=== PATIENT | female | born 1960 | race Caucasian/White ===

== ENCOUNTER 2017-09-06 17:59 | Inpatient (IN) | payer BC ==
[~2017-09-06] VITALS: Ht 170.2 cm; Wt 69.7 kg
[2017-09-06] MEDS ORDERED: PROAIR HFA8.5 GM INH (18:08)
[2017-09-06] MEDS ORDERED: COMBIVENT RESPIM4 GM INH (18:08)
[2017-09-06 18:48] LABS: BASOPHILS 0.1 % (0-2); EOSINOPHILS 0.1 % (0-7); HEMATOCRIT 41.8 % (36.0-48.0); HEMOGLOBIN 14.4 g/dL (12-16); IMMATURE GRANULOCYTES 0.3 % (0-5); LYMPHOCYTES 6.9 % (15-50); MCH 31.7 pg (26.0-34.0); MCHC 34.4 g/dL (31.0-37.0); MCV 92.1 fL (80.0-100.0); MEAN PLATELET VOLUME 11.4 fL (7.4-10.4); NEUTROPHILS 86.6 % (40-80); PLATELET COUNT 160 10x3/uL (130-400); RBC 4.54 10x6/uL (4.00-5.40); WBC 10.9 10x3/uL (4.8-10.8)
[2017-09-06 19:11] LABS: ALBUMIN 2.9 g/dL (3.4-5.0); ALKALINE PHOSPHATASE 260 U/L (46-116); ALT (SGPT) 49 U/L (10-68); BILIRUBIN - TOTAL 1.05 mg/dL (0.2-1.3); CALC OSMOLALITY 271 mosm/kg (275-300); CALCIUM 9.1 mg/dL (8.5-10.1); CARBON DIOXIDE 22.4 mmol/L (21.0-32.0); CHLORIDE - SERUM 101 mmol/L (98-107); CREATININE - SERUM 1.1 mg/dL (0.6-1.3); GLUCOSE 132 mg/dL (74-106); POTASSIUM - SERUM 3.6 mmol/L (3.5-5.1); PROTEIN - SERUM 7.1 g/dL (6.4-8.2); SODIUM 136 mmol/L (136-145); UREA NITROGEN 8 mg/dL (7-18); eGFR NON AFRICAN AMERICAN 54 mL/min (90-120)
[2017-09-06 19:23] LABS: AMYLASE - SERUM 35 U/L (25-115); CKMB 1.5 U/L (0.0-3.6); CREATINE KINASE 230 UL (21-215); LIPASE 87 U/L (73-393); PRO BNP 490 pg/mL (0-125); THYROID STIMULATING HORMONE 5.11 uIU/mL (0.36-3.74)
[2017-09-06 19:24] LABS: APPEARANCE CLEAR (CLEAR); BILIRUBIN 1+ (NEGATIVE); COLOR DK YELLOW (YELLOW); GLUCOSE 50 mg/dL (NEGATIVE); KETONE SMALL mg/dL (NEGATIVE); NITRITE NEGATIVE (NEGATIVE); PROTEIN TRACE mg/dL (NEGATIVE); SPECIFIC GRAVITY 1.015 (1.005-1.020)
[2017-09-06 19:25] LABS: BACTERIA FEW /hpf (NONE SEEN); RED CELLS - URINE 0-5 /hpf (0-5); WHITE CELLS - URINE 0-5 /hpf (0-5)
[2017-09-06 19:26] LABS: MUCUS <1+ /lpf (NONE SEEN)
[2017-09-06 20:15] LABS: C-REACTIVE PROTEIN 36.1 mg/dL (0.0-0.9); TROPONIN-I < 0.017 ng/mL (0.000-0.060)
[2017-09-06 21:04] LABS: T4 THYROXIN - FREE 1.22 ng/dL (0.76-1.46)
[2017-09-07 00:29] VITALS: BP 93/42; BMI 21.5
[2017-09-07 01:41] VITALS: BP 93/42
[2017-09-07 04:00] VITALS: BP 101/59
[2017-09-07 06:31] LABS: BASOPHILS 0.2 % (0-2); EOSINOPHILS 0.7 % (0-7); LYMPHOCYTES 14.6 % (15-50); MCH 30.6 pg (26.0-34.0); MCHC 33.4 g/dL (31.0-37.0); MCV 91.6 fL (80.0-100.0); MEAN PLATELET VOLUME 11.3 fL (7.4-10.4); MONOCYTES 10.8 % (2-11); NEUTROPHILS 73.7 % (40-80); PLATELET COUNT 131 10x3/uL (130-400)
[2017-09-07 06:48] LABS: ANION GAP 11.2 mmol/L (8-16); BILIRUBIN - TOTAL 0.48 mg/dL (0.2-1.3); CALCIUM 7.4 mg/dL (8.5-10.1); CARBON DIOXIDE 23.2 mmol/L (21.0-32.0); CREATININE - SERUM 0.9 mg/dL (0.6-1.3); POTASSIUM - SERUM 3.4 mmol/L (3.5-5.1)
[2017-09-07 06:54] LABS: ALBUMIN 1.9 g/dL (3.4-5.0); PROTEIN - SERUM 4.3 g/dL (6.4-8.2)
[2017-09-07 07:14] LABS: HEMATOCRIT 32.6 % (36.0-48.0); HEMOGLOBIN 10.9 g/dL (12-16); RBC 3.56 10x6/uL (4.00-5.40); WBC 4.2 10x3/uL (4.8-10.8)
[2017-09-07 13:30] VITALS: BMI 21.4
[2017-09-07 13:57] VITALS: Ht 170.2 cm; Wt 69.7 kg
[2017-09-07 15:43] VITALS: BP 104/62
[2017-09-07 19:45] LABS: % SATURATION 10 % (15-55); IRON 14 ug/dl (35-150); TOTAL IRON BIND CAPACITY 132 ug/dl (260-445); UNSAT IRON BIND CAPACITY 118 ug/dl (150-375)
[2017-09-07 21:58] VITALS: BP 95/51
[2017-09-08] VITALS (7 sets, daily range): BP systolic 99–128; BP diastolic 53–74
[2017-09-08 05:20] LABS: BASOPHILS 0.3 % (0-2); EOSINOPHILS 2.9 % (0-7); HEMATOCRIT 32.5 % (36.0-48.0); HEMOGLOBIN 10.7 g/dL (12-16); IMMATURE GRANULOCYTES 0.3 % (0-5); LYMPHOCYTES 28.9 % (15-50); MCH 30.1 pg (26.0-34.0); MCHC 32.9 g/dL (31.0-37.0); MCV 91.5 fL (80.0-100.0); MEAN PLATELET VOLUME 11.1 fL (7.4-10.4); MONOCYTES 13.5 % (2-11); NEUTROPHILS 54.1 % (40-80); PLATELET COUNT 134 10x3/uL (130-400); RBC 3.55 10x6/uL (4.00-5.40); RDW 13.1 % (11.5-14.5)
[2017-09-08 05:21] LABS: WBC 3.1 10x3/uL (4.8-10.8)
[2017-09-08 05:37] LABS: ANION GAP 10.9 mmol/L (8-16); CALCIUM 7.7 mg/dL (8.5-10.1); CARBON DIOXIDE 23.3 mmol/L (21.0-32.0); CREATININE - SERUM 0.9 mg/dL (0.6-1.3); POTASSIUM - SERUM 3.2 mmol/L (3.5-5.1)
[2017-09-08 05:43] LABS: CHOL - HDL RATIO 3.3 ratio (2.3-4.1); LDL-HDL RATIO 1.9 ratio (1.5-3.5)
[2017-09-09 04:00] VITALS: BP 146/79
[2017-09-09 05:33] LABS: BASOPHILS 0.3 % (0-2); EOSINOPHILS 0.8 % (0-7); HEMATOCRIT 35.6 % (36.0-48.0); HEMOGLOBIN 11.9 g/dL (12-16); IMMATURE GRANULOCYTES 0.3 % (0-5); LYMPHOCYTES 12.8 % (15-50); MCH 30.6 pg (26.0-34.0); MCHC 33.4 g/dL (31.0-37.0); MCV 91.5 fL (80.0-100.0); MONOCYTES 3.4 % (2-11); NEUTROPHILS 82.4 % (40-80); RBC 3.89 10x6/uL (4.00-5.40); RDW 13.5 % (11.5-14.5); WBC 3.8 10x3/uL (4.8-10.8)
[2017-09-09 05:49] LABS: ANION GAP 11.7 mmol/L (8-16); CALCIUM 8.4 mg/dL (8.5-10.1); CREATININE - SERUM 0.9 mg/dL (0.6-1.3); POTASSIUM - SERUM 3.7 mmol/L (3.5-5.1)
[2017-09-09 05:50] LABS: PLATELET COUNT 192 10x3/uL (130-400)
[2017-09-09 07:21] LABS: FOLATE (FOLIC ACID) - SERUM 5.5 ng/mL (>3.0)
[2017-09-09 07:45] VITALS: BP 120/64
[2017-09-09 11:42] VITALS: BP 102/55
[2017-09-09 15:46] VITALS: BP 113/61
[2017-09-09 21:40] VITALS: BP 131/65
[2017-09-10 06:14] VITALS: BP 135/80
[2017-09-10 06:30] LABS: BASOPHILS 0 % (0-2); EOSINOPHILS 0.1 % (0-7); HEMATOCRIT 30.4 % (36.0-48.0); IMMATURE GRANULOCYTES 0.6 % (0-5); LYMPHOCYTES 12.5 % (15-50); MCH 30.4 pg (26.0-34.0); MCHC 32.9 g/dL (31.0-37.0); MCV 92.4 fL (80.0-100.0); MEAN PLATELET VOLUME 10.7 fL (7.4-10.4); MONOCYTES 6.6 % (2-11); NEUTROPHILS 80.2 % (40-80); PLATELET COUNT 198 10x3/uL (130-400); RBC 3.29 10x6/uL (4.00-5.40); RDW 13.9 % (11.5-14.5)
[2017-09-10 06:33] VITALS: BP 105/53
[2017-09-10 06:33] LABS: WBC 7.2 10x3/uL (4.8-10.8)
[2017-09-10 06:48] LABS: ANION GAP 9.6 mmol/L (8-16); CALCIUM 8.5 mg/dL (8.5-10.1); CARBON DIOXIDE 27.2 mmol/L (21.0-32.0); CREATININE - SERUM 0.9 mg/dL (0.6-1.3); POTASSIUM - SERUM 3.8 mmol/L (3.5-5.1)
[2017-09-10 07:40] VITALS: BP 127/76
[2017-09-10 11:19] VITALS: BP 124/69
[2017-09-10 15:35] VITALS: BP 131/73
[2017-09-10 20:21] VITALS: BP 142/72
[2017-09-11 02:14] VITALS: BP 140/76
[2017-09-11 05:15] VITALS: BP 160/93
[2017-09-11 06:33] LABS: BASOPHILS 0.1 % (0-2); EOSINOPHILS 0.5 % (0-7); HEMATOCRIT 32.6 % (36.0-48.0); HEMOGLOBIN 10.7 g/dL (12-16); IMMATURE GRANULOCYTES 1.6 % (0-5); LYMPHOCYTES 17.9 % (15-50); MCH 30.7 pg (26.0-34.0); MCHC 32.8 g/dL (31.0-37.0); MCV 93.7 fL (80.0-100.0); MONOCYTES 8.2 % (2-11); NEUTROPHILS 71.7 % (40-80); RBC 3.48 10x6/uL (4.00-5.40); RDW 14.4 % (11.5-14.5); WBC 8.3 10x3/uL (4.8-10.8)
[2017-09-11 06:35] LABS: PLATELET COUNT 240 10x3/uL (130-400)
[2017-09-11 07:03] LABS: ANION GAP 11.9 mmol/L (8-16); CALCIUM 8.5 mg/dL (8.5-10.1); CARBON DIOXIDE 28.3 mmol/L (21.0-32.0); CREATININE - SERUM 0.9 mg/dL (0.6-1.3); POTASSIUM - SERUM 4.2 mmol/L (3.5-5.1)
[2017-09-11 08:34] VITALS: BP 150/80
[2017-09-11 12:24] VITALS: BP 118/65
[2017-09-11] MEDS ORDERED: DOXYCYCLINE HY100 M2 PO (13:05)
[2017-09-11] MEDS ORDERED: OMNICEF300 MG PO (13:06)
[2017-09-11] MEDS ORDERED: PREDNISONE10 MG PO (13:06)
[2017-09-13 05:13] LABS: IMMUNOGLOBULIN E 216 IU/mL (0-100)
== END 2017-09-11 15:20 | disposition home or self-care (01) | DRG 177 ==
LOC: D.ER 17:59 → D.M2 21:03 → D.EDHOLD 21:03 → D.M2 21:30
PROVIDERS: Family Medicine; Internal Medicine Nephrology; Internal Medicine Pulmonary Disease
DX: J15.6 Pneumonia due to other Gram-negative bacteria (principal); E43 Unspecified severe protein-calorie malnutrition; J44.0 Chronic obstructive pulmonary disease with (acute) lower respiratory infection; F17.203 Nicotine dependence unspecified, with withdrawal; D64.9 Anemia, unspecified; E87.6 Hypokalemia; Z68.21 Body mass index [BMI] 21.0-21.9, adult; E11.9 Type 2 diabetes mellitus without complications; K57.90 Diverticulosis of intestine, part unspecified, without perforation or abscess without bleeding; K44.9 Diaphragmatic hernia without obstruction or gangrene; J15.212 Pneumonia due to Methicillin resistant Staphylococcus aureus

== ENCOUNTER → 2017-11-21 15:52 | Outpatient (CLI) | payer BC ==
[2017-09-07 13:57] VITALS: BMI 21.4
[~2017-11-21 15:52] MED LIST: COMBIVENT RESPIM4 GM INH; DOXYCYCLINE HY100 M2 PO; OMNICEF300 MG PO; PREDNISONE10 MG PO; PROAIR HFA8.5 GM INH
== END | disposition home or self-care (01) ==
LOC: D.RAD 15:52
DX: Z87.01 Personal history of pneumonia (recurrent) (principal)